=== PATIENT | female | born 1970 | race Caucasian/White ===

== ENCOUNTER → 2017-05-24 | Outpatient (CLI) | payer OTHER | LOC: KOH-I 14:49 | DX: L02.01 Cutaneous abscess of face (principal); L03.211 Cellulitis of face | CPT/HCPCS: 70220 ==

== ENCOUNTER 2021-01-15 12:52 | Emergency (ER) | payer OTHER ==
[~2021-01-15 12:52] MED LIST: ALBUTEROL2.5 MG/3 M INH; BENTYL 20MG TAB20 MG PO; CEFUROXIME500 MG PO; CIPRO500 MG PO; DIAZEPAM10 MG PO; IBUPROFEN600 MG PO; LODINE CAP 300300 MG PO; METHYLPHENIDATE20 M2 PO; METHYLPHENIDATE36 MG PO; OMNICEF 300 MG300 MG PO; ONDANSETRON ODT4 MG SL; PERCOCET 5-3251 EACH PO; PYRIDIUM200 MG PO; SEROQUEL25 MG PO; ZOFRAN ODT 4 MG4 MG PO; ZOFRAN4 MG PO
[2021-01-15 14:12] LABS: HEMOGLOBIN 13.4 gm/dl (12.3-15.3); RED BLOOD COUNT 4.49 M/UL (4.00-5.10); WHITE BLOOD COUNT 6.9 K/UL (4.5-11.0)
[2021-01-15 14:43] LABS: BUN/CREATININE RATIO 23 (0-10)
[2021-01-15] MEDS ORDERED: BENTYL 10MG CAP10 MG PO (18:57)
== END 2021-01-15 19:06 | disposition home or self-care (01) ==
LOC: ER1 12:52
DX: K58.1 Irritable bowel syndrome with constipation (principal); I10 Essential (primary) hypertension; Z88.1 Allergy status to other antibiotic agents; Z88.8 Allergy status to other drugs, medicaments and biological substances
CPT/HCPCS: 71045; 80053; 81001; 82550; 82553; 83874; 84484; 85025; 85652; 86140; 93005; 99284; Q9967

== ENCOUNTER → 2021-06-30 | Outpatient (CLI) | payer OTHER ==
[~2021-06-30] MED LIST changes: +BENTYL 10MG CAP10 MG PO
== END ==
LOC: KOH-I 13:19
DX: R05.9 Cough, unspecified (principal); R07.81 Pleurodynia
CPT/HCPCS: 71046

== ENCOUNTER 2021-08-20 20:24 | Emergency (ER) | payer OTHER ==
[2021-08-20 20:41] LABS: HEMOGLOBIN 13.1 gm/dl (12.3-15.3); RED BLOOD COUNT 4.39 M/UL (4.00-5.10)
[2021-08-20 21:07] LABS: BUN/CREATININE RATIO 22 (0-10)
== END 2021-08-20 23:40 | disposition home or self-care (01) ==
LOC: ER1 20:24
PROVIDERS: Emergency Medicine
DX: S27.0XXA Traumatic pneumothorax, initial encounter (principal); S80.02XA Contusion of left knee, initial encounter; F17.200 Nicotine dependence, unspecified, uncomplicated; Z88.8 Allergy status to other drugs, medicaments and biological substances; Z85.038 Personal history of other malignant neoplasm of large intestine; V49.50XA Passenger injured in collision with unspecified motor vehicles in traffic accident, initial encounter; W22.12XA Striking against or struck by front passenger side automobile airbag, initial encounter; Y92.410 Unspecified street and highway as the place of occurrence of the external cause
CPT/HCPCS: 70450; 71260; 72125; 73502; 73552; 73562; 73590; 80053; 83690; 85025; 90471; 90715; 93005; 96374; 96375; 99284; J2270; J2405; Q9967

== ENCOUNTER → 2021-09-03 | Outpatient (CLI) | payer OTHER | LOC: KOH-I 14:07 | DX: M25.512 Pain in left shoulder (principal); S27.0XXS Traumatic pneumothorax, sequela; M24.812 Other specific joint derangements of left shoulder, not elsewhere classified; N13.5 Crossing vessel and stricture of ureter without hydronephrosis; R07.81 Pleurodynia; R11.0 Nausea; G83.20 Monoplegia of upper limb affecting unspecified side; M19.012 Primary osteoarthritis, left shoulder; Z74.09 Other reduced mobility | CPT/HCPCS: 73221 ==

== ENCOUNTER 2021-09-29 22:13 | Emergency (ER) | payer OTHER ==
[2021-09-29 23:00] LABS: HEMOGLOBIN 13.2 gm/dl (12.3-15.3); RED BLOOD COUNT 4.41 M/UL (4.00-5.10); WHITE BLOOD COUNT 5.4 K/UL (4.5-11.0)
[2021-09-29 23:48] LABS: BUN/CREATININE RATIO 20 (0-10)
== END 2021-09-30 01:18 | disposition home or self-care (01) ==
LOC: ER1 22:13
PROVIDERS: Physician Assistant
DX: U07.1 COVID-19 (principal); Z90.710 Acquired absence of both cervix and uterus; F17.210 Nicotine dependence, cigarettes, uncomplicated
CPT/HCPCS: 0240U; 71045; 80053; 82550; 82553; 83874; 84484; 85025; 93005; 96372; 99285; J1100

== ENCOUNTER 2022-01-27 15:08 | Emergency (ER) | payer OTHER ==
[2022-01-27 15:53] LABS: HEMOGLOBIN 13.5 gm/dl (12.3-15.3); RED BLOOD COUNT 4.5 M/UL (4.00-5.10); WHITE BLOOD COUNT 15.6 K/UL (4.5-11.0)
[2022-01-27 16:00] LABS: BORDETELLA PARAPERTUSSIS Not Detected (Not Detectd); BORDETELLA PERTUSSIS Not Detected (Not Detectd); CHLAMYDIA PNEUMONIAE Not Detected (Not Detectd); CORONAVIRUS HKU1 Not Detected (Not Detectd); CORONAVIRUS NL63 Not Detected (Not Detectd); CORONAVIRUS OC43 Not Detected (Not Detectd); CORONOAVIRUS 229E Not Detected (Not Detectd); HUMAN METAPNEUMOVIRUS Not Detected (Not Detectd); HUMAN RHINOVIRUS/ENTEROVIRUS Not Detected (Not Detectd); INFLUENZA A Not Detected (Not Detectd); INFLUENZA B Not Detected (Not Detectd); MYCOPLASMA PNEUMONIAE Not Detected (Not Detectd); PARAINFLUENZA VIRUS 1 Not Detected (Not Detectd); PARAINFLUENZA VIRUS 2 Not Detected (Not Detectd); PARAINFLUENZA VIRUS 3 Not Detected (Not Detectd); PARAINFLUENZA VIRUS 4 Not Detected (Not Detectd); RESPIRATORY SYNCYTIAL VIRUS Not Detected (Not Detectd)
[2022-01-27 16:29] LABS: BUN/CREATININE RATIO 26 (0-10)
[2022-01-27 17:08] LABS: SARS-CoV-2 NOT DETECTED (Not Detectd)
[2022-01-27] MEDS ORDERED: ZOFRAN 4 MG TAB4 MG PO (17:47)
[2022-01-27] MEDS ORDERED: PROAIR HFA8.5 GM INH (17:47)
[2022-01-27] MEDS ORDERED: CEFUROXIME500 MG PO (17:47)
[2022-01-27] MEDS ORDERED: BENZONATATE200 MG PO (17:47)
[2022-01-27] MEDS ORDERED: ZITHROMAX250 MG PO (17:52)
== END 2022-01-27 18:32 | disposition home or self-care (01) ==
LOC: ER1 15:08
PROVIDERS: Preventive Medicine Occupational Medicine
DX: J18.9 Pneumonia, unspecified organism (principal); Z20.822 Contact with and (suspected) exposure to COVID-19
CPT/HCPCS: 36600; 71045; 80053; 81001; 82009; 82550; 82553; 82803; 83605; 83690; 83880; 84484; 85025; 85652; 86140; 86403; 87040; 87081; 87086; 87633; 87880; 93005; 94664; 96374; 99284; J0696

== ENCOUNTER 2022-02-21 20:37 | Emergency (ER) | payer OTHER ==
[~2022-02-21 20:37] MED LIST changes: +BENZONATATE200 MG PO; +PROAIR HFA8.5 GM INH; +ZITHROMAX250 MG PO; +ZOFRAN 4 MG TAB4 MG PO
== END 2022-02-21 21:50 | disposition left against medical advice (07) ==
LOC: ER1 20:37
DX: Z53.21 Procedure and treatment not carried out due to patient leaving prior to being seen by health care provider (principal)

== ENCOUNTER → 2022-03-03 | Outpatient (CLI) | payer OTHER | LOC: CT 13:30 | DX: J44.0 Chronic obstructive pulmonary disease with (acute) lower respiratory infection (principal); J18.9 Pneumonia, unspecified organism; R06.00 Dyspnea, unspecified; B37.9 Candidiasis, unspecified; B37.0 Candidal stomatitis; B07.0 Plantar wart; M54.59 Other low back pain; R09.89 Other specified symptoms and signs involving the circulatory and respiratory systems; R91.1 Solitary pulmonary nodule | CPT/HCPCS: 71260; Q9967 ==